=== PATIENT | female | born 1995 | race Hispanic/Latino ===

== ENCOUNTER 2019-04-19 02:46 | Inpatient (IN) | payer OTHER ==
[2019-04-19 03:32] VITALS: BMI 41.6
[2019-04-19] MEDS ORDERED: hydrALAZINE 20 MG/ML VIAL SLOW IVP PRN ×3 (04:12→20:40)
[2019-04-19] MEDS ORDERED: Promethazine HCl 25 MG/ML VIAL IM SCH (04:15)
[2019-04-19] MEDS ORDERED: Butorphanol Tartrate 1 MG/ML VIAL SLOW IVP SCH (04:15)
[2019-04-19 07:58] LABS: Hemoglobin 11.4 g/dL (12.0-16.0); Mean Corpuscular HGB CONC 34.3 g/dL (32.0-36.0); Mean Corpuscular Hemoglobin 29.6 pg (27.0-31.0); Mean Corpuscular Volume 86.3 fL (78.0-98.0); Mean Platelet Volume 9.3 fL (7.4-10.4); Platelet Count 186 thou/uL (130-400); RBC Distribution Width 13.9 % (11.5-14.5); Red Blood Cell (RBC) Count 3.86 mill/uL (4.20-5.40); White Blood Cell (WBC) Count 8.7 thou/uL (4.8-10.8)
[2019-04-19 08:38] LABS: HIV (1/2) Antibody/Antigen Non-Reactive (NonReactive); HIV 1/2 INDEX 0.18 S/CO (<1.00); Syphilis Antibody Nonreactive (Nonreactive); Syphilis Antibody Index 0.04 S/CO (<1.00 Non-Reactive)
[2019-04-19] MEDS ORDERED: Ondansetron PF 4 MG/2 ML Vial IVP PRN ×2 (08:39→15:48)
[2019-04-19] MEDS ORDERED: Lidocaine 1% (PF) 30 ML VIAL SC PRN (08:39)
[2019-04-19] MEDS ORDERED: Ibuprofen 800 MG TAB PO PRN (08:39)
[2019-04-19] MEDS ORDERED: NS / Oxytocin 40 units/1000ml 1,000 ML IV PRN (08:39)
[2019-04-19] MEDS ORDERED: Promethazine HCl 25 MG/ML VIAL IM PRN ×2 (08:39→15:48)
[2019-04-19] MEDS ORDERED: Lactated Ringer's 1,000 ML IV SCH (08:45)
--- NOTE | 2019-04-19 09:27 | PDOC.LDHP ---
Labor and Delivery H&P Chief complaint: contractions, other (Recurrent decelerations in early labor) HPI: at 40 weeks. In early labor but with recurrent decelerations. Will admit and induce for concern about distress. Baseline FHT are 145, moderate variability, early and variable decelerations but not with every contractions. Current gestational age (weeks): 40 Due date: 04/19/19 Dating criteria: first trimester ultrasound Grav: 1 Para: 0 Current complications: none Abnormal US findings: No Past Medical History: SVT on metoprolol. Generalized anxiety on sertraline. Current medications: pre-santiago vitamins Previous surgical history: none Allergies/Adverse Reactions: Allergies Allergy/AdvReac Type Severity Reaction Status Date / Time No Known Allergies Allergy Unverified 04/19/19 03:24 Social history: none - Physical Exam Vital signs reviewed and normal: yes General: NAD Heart: RRR Lungs: CTAB Abdomen: gravid Extremeties: no edema FHT: category 2, early decelerations, variable decelerations, variability present [place] contractions every: Irregular - Vaginal Exam cm dilated: 1 Effacement: 50% Station: -2 - OB Labs Blood type: O RH: positive Antibody Screen: negative HIV: negative RPR: negative HEPSAg: negative 1 hour GCT: negative GBS: negative Urine drug screen: not done Rubella: immune - Assessment L&D Assessment: term patient in labor (Early labor with irregular decelerations. WIll induce with Cook's balloon and pitocin.) - Plan Plan: admit to L&D, cervical ripening, labor augmentation if indicated, anesthesia consult for pain management
--- NOTE | 2019-04-19 09:33 | PDOC.EVN ---
Event Note - Event Note Event Note: I came to evaluate the patient. FHT category II. Generally well appearing but with occasional early or variable decelerations. CTX every 5 minutes. Cooks balloon placed wihtout difficulty. SVE 2-3/-1.
[2019-04-19 09:38] LABS: HBSAg Index 0.19 S/CO (0-0.99); Hep B Surf Ag Non-Reactive S/CO (NonReactive)
[2019-04-19] MEDS ORDERED: Butorphanol Tartrate 1 MG/ML VIAL SLOW IVP PRN (10:36)
[2019-04-19] MEDS ORDERED: ePHEDrine 50 MG/ML VIAL ONE (11:49)
[2019-04-19] MEDS ORDERED: PHENYLEPHRINE-NS 100 MCG/ML 10 ML SYRINGE ONE ×3 (11:49→15:16)
[2019-04-19] MEDS ORDERED: Dexamethasone 20 MG/5 ML VIAL ONE (11:49)
[2019-04-19] MEDS ORDERED: Ketorolac Tromethamine 30 MG/ML VIAL ONE (11:49)
[2019-04-19] MEDS ORDERED: Ondansetron PF 4 MG/2 ML Vial ONE ×2 (11:49→14:50)
[2019-04-19] MEDS ORDERED: Metoprolol Tartrate 25 MG TAB PO SCH ×2 (12:00→21:00)
[2019-04-19] MEDS ORDERED: NS w/ Oxytocin 10 units 500 ML ONE (12:06)
--- NOTE | 2019-04-19 13:55 | PDOC.EVN ---
Event Note - Event Note Event Note: Cooks balloon through the cervix on exam. SVE /-1. Balloon removed. AROM with thin meconium. FSE and IUPC placed. Having recurrent variable decelerations with every contraction. Amnioinfusion started for recurrent variables. Baseline 140, moderate variability, some accelerations, variable decelerations with contractions. Continue to reposition. Continue amnioinfusion.
[2019-04-19] MEDS ORDERED: Bicitra 30 ML UDCUP ONE (14:36)
[2019-04-19] MEDS: Lactated Ringer's 1,000 ML IV SCH (14:41)
[2019-04-19] MEDS ORDERED: Dexamethasone 4 mg/ml Vial ONE (14:50)
[2019-04-19] MEDS ORDERED: Oxytocin 10 UNITS/ML VIAL ONE ×2 (14:50→15:25)
[2019-04-19] MEDS ORDERED: MORPHINE 5 MG/10 ML PF VIAL ONE (14:50)
[2019-04-19] MEDS ORDERED: ePHEDrine/0.9% NaCl/PF SYRINGE 50 mg/10 ml ONE (14:50)
[2019-04-19] MEDS ORDERED: Fentanyl 100 MCG/2 ML VIAL ONE (14:50)
--- NOTE | 2019-04-19 14:54 | PDOC.EVN ---
Event Note - Event Note Event Note: Patient repositioned to hand and knees to try to relieve the recurrent variables and FHT became much worse in that position with deep late decels to the 80's lasting 60-90 seconds. decision made to proceed with primary C/S due to intolerance to labor, recurrent decelerations. Dr. Neymar Ruiz notified and coming to scrub with me. Discussed with patient and her family and informed consent given. Will proceed with primary C/S. Ancef hanging. Bicitra given. Anesthesia on the unit speaking with the patient. We repositioned to right lateral and applied O2 by facemask with some recovery for the baby. Currently FHT 155, moderate variability. Deceleration with the last contraction was not as deep or prolonged.
[2019-04-19] MEDS ORDERED: Lidocaine 2% PF 5 ML VIAL ONE (14:59)
[2019-04-19 15:45] LABS: Analyzer IN Cardio OR; pH (Cord, venous) 7.33 (7.32-7.43)
[2019-04-19] MEDS ORDERED: Naloxone HCl 0.4 mg/ml Vial IVP PRN ×2 (15:48)
[2019-04-19] MEDS ORDERED: diphenhydrAMINE 50 MG/ML VIAL IVP PRN (15:48)
[2019-04-19] MEDS ORDERED: Naloxone HCl 0.4 mg/ml Vial IV PRN (15:48)
[2019-04-19] MEDS ORDERED: Promethazine HCl 25 MG SUPP PR PRN (15:48)
[2019-04-19] MEDS ORDERED: Ondansetron HCl/PF 4 MG/2 ML Vial IVP PRN (15:48)
[2019-04-19] MEDS ORDERED: Meperidine HCl/PF 25 MG/ML VIAL SLOW IVP PRN (15:48)
[2019-04-19] MEDS ORDERED: HYDROmorphone 2 MG/ML VIAL SLOW IVP PRN (15:48)
[2019-04-19] MEDS ORDERED: L&D-Morphine 4 MG/ML VIAL SLOW IVP PRN (15:48)
[2019-04-19] MEDS ORDERED: Communication Order-Pharmacy FS SCH (16:00)
[2019-04-19] MEDS ORDERED: Meperidine HCl/PF 25 MG/ML VIAL ONE (17:54)
[2019-04-19] MEDS ORDERED: Acetaminophen 325 MG TAB PO PRN (20:40)
[2019-04-19] MEDS ORDERED: Bisacodyl 10 MG SUPP PR PRN (20:40)
[2019-04-19] MEDS ORDERED: Lanolin Ointment 7 GM TUBE TOP PRN (20:40)
--- NOTE | 2019-04-19 22:08 | CON ---
DATE OF CONSULTATION: HISTORY OF PRESENT ILLNESS: This is a 23-year-old female, G1, P0, at 40 weeks gestation with an EDC of 04/19/2019, who presented in labor. Dilated to 6 cm at this time. However, the patient is now having repetitively T-cells. She did have an episode of decreased variability, but strep now is reactive, but still having T-cells. Plan is to proceed with a primary low-transverse section. PAST MEDICAL HISTORY: History of anxiety disorder. PAST SURGICAL HISTORY: None. MEDICATIONS: vitamins. ALLERGIES: FAMILY HISTORY: Unremarkable. SOCIAL HISTORY: Boyfriend is present. Does not smoke, does not drink vital signs. PHYSICAL EXAMINATION: VITAL SIGNS: Stable, afebrile. HEART: Clear. LUNGS: Clear. ABDOMEN: Gravid. EXTREMITIES: No edema. LABORATORY DATA: Rubella immune. RPR negative. GC and Chlamydia negative. Hepatitis B negative. HIV negative and GBS negative. O positive blood type. ASSESSMENT: 1. Non-reassuring heart tracing. 2. Forty-week intrauterine . 3. Anxiety disorder, on sertraline 50 daily. PLAN: 1. Proceed with a primary low-transverse section. 2. Anesthesia present. 3. Discussed with the patient and mother and significant other. Job ID: [id number]
[2019-04-19] MEDS: Docusate Calcium (SURFAK) 240 MG CAP PO SCH (23:12)
--- NOTE | 2019-04-19 23:28 | OP ---
DATE OF PROCEDURE: 04/19/2019 LOCATION: [place], [place]. VALVE MACHINE OPERATOR: Dr. Gonzalez. PROCEDURE: Primary low transverse section. PREOPERATIVE DIAGNOSES: 1. Term intrauterine . 2. Non-reassuring heart tones, intolerance of labor. POSTOPERATIVE DIAGNOSES: 1. Term intrauterine , delivered. 2. Non-reassuring heart tones, intolerance of labor. ANESTHESIA: Spinal. INDICATIONS: Patient is a 23-year-old, G1, P0, at 40 weeks gestation who presented in labor. Patient subsequently developed recurrent deep variable decelerations in addition to recurrent late and variable decelerations and decision was made to perform primary low-transverse section secondary to nonreassuring heart tones. DESCRIPTION OF PROCEDURE: After risks, benefits, and alternatives were explained to the patient, she gave informed consent. Preoperative antibiotics including Ancef 2 g IV. The patient was taken to the operating room, where spinal anesthesia was initiated. She was placed in the supine position with a left tilt, prepped and draped in the usual sterile fashion. A Pfannenstiel incision was made with a scalpel, carried down at the level of fascia which was sharply nicked. The fascial cut was extended bilaterally with Franco scissors. At this point, small bleeders were cauterized with Bovie cauterization. Following this, inferior and superior edges of the fascial edges were elevated with Bushra clamps and the underlying rectus muscles were sharply and bluntly dissected free. The recti were divided digitally and retracted manually. The perineum was entered bluntly and retracted manually. At this point, the Garret O retractor was placed. A low transverse score was made with a scalpel. The uterus was entered in the midline with the scalpel. Clear fluid was seen. The hysterotomy was extended manually. The infant was noted to be vertex and easily delivered by fundal pressure. The cord was wrapped around the ankle x2. Mouth and nares were bulb suctioned. The cord was clamped and cut and grossly normal female infant was handed to the waiting nurse. Cord blood was obtained after a cord segment was obtained for cord gas analysis. The placenta was manually extracted, found to be intact with three vessel cord and discarded. The uterus was then curetted with a dry lap. Following this, the uterus was closed with 1 Monocryl suture. Following this, hemostasis was noted. The Garret O was then removed. Following removal of the Garret O, hemostasis was again noted. The abdomen was irrigated with saline and suctioned free of clots. Peritoneum was closed with a running 2-0 chromic suture. The fascia was closed with a running nonlocking 0 Vicryl suture. The subcutaneous tissue was irrigated and bleeders were cauterized with Bovie cauterization. The subcutaneous tissue was approximated with 3-0 chromic suture and the skin was then approximated with marie. Following this, pressure dressing was placed. All counts were correct. The patient tolerated procedure well, was taken to recovery room in stable condition. ESTIMATED BLOOD LOSS: 800 mL. COMPLICATIONS: None. SPECIMENS: Cord blood sent to lab for blood type. Cord segment sent for cord gas analysis. FINDINGS: Grossly normal female with Apgars of eight and nine at 1 and 5 minutes respectively. Grossly normal placenta with three vessel cord discarded. DRAINS: Garcia to gravity draining clear urine. Job ID: [id number] MTDD
[2019-04-20] MEDS: Ketorolac Tromethamine 30 MG/ML VIAL IVP SCH ×4 (00:15→16:16)
[2019-04-20] MEDS: HYDROcodone/Acetaminophen 5/325 mg Tablet PO PRN ×5 (05:11→22:52)
[2019-04-20 05:14] LABS: Hemoglobin 10.1 g/dL (12.0-16.0); Mean Corpuscular HGB CONC 34.4 g/dL (32.0-36.0); Mean Corpuscular Hemoglobin 30.3 pg (27.0-31.0); Mean Corpuscular Volume 88.1 fL (78.0-98.0); Mean Platelet Volume 8.8 fL (7.4-10.4); Platelet Count 158 thou/uL (130-400); RBC Distribution Width 13.9 % (11.5-14.5); Red Blood Cell (RBC) Count 3.33 mill/uL (4.20-5.40)
[2019-04-20] MEDS: Lactated Ringer's 1,000 ML IV SCH (06:15)
[2019-04-20] MEDS: Docusate Calcium (SURFAK) 240 MG CAP PO SCH ×2 (09:11→21:41)
[2019-04-20] MEDS: Simethicone Chewable 80 MG TAB PO PRN ×2 (09:12→18:19)
[2019-04-20] MEDS: Ibuprofen 800 MG TAB PO SCH (21:41)
[2019-04-21] MEDS: HYDROcodone/Acetaminophen 5/325 mg Tablet PO PRN ×2 (04:00→18:30)
[2019-04-21] MEDS: Ibuprofen 800 MG TAB PO SCH ×3 (06:06→21:27)
[2019-04-21] MEDS: Docusate Calcium (SURFAK) 240 MG CAP PO SCH ×2 (09:30→21:28)
[2019-04-21] MEDS: Simethicone Chewable 80 MG TAB PO PRN (21:27)
[2019-04-22] MEDS: Ibuprofen 800 MG TAB PO SCH (06:24)
[2019-04-22 07:57] VITALS: BP 135/83; TEMP 98.5
[2019-04-22] MEDS: Docusate Calcium (SURFAK) 240 MG CAP PO SCH (09:43)
--- NOTE | 2019-04-22 10:29 | OP ---
DATE OF PROCEDURE: 04/19/2019 PREOPERATIVE DIAGNOSES: 1. Term . 2. Non-reassuring heart tracing. POSTOPERATIVE DIAGNOSES: 1. Term . 2. Non-reassuring heart tracing. 3. Cord around the ankle x2. 4. Occiput posterior. PROCEDURE PERFORMED: Primary low-transverse section. ASSISTANTS: Michael Gonzalez MD and Willie Bird DO. DESCRIPTION OF PROCEDURE: This is a 23-year-old female, G1, P0, taken to operating room. Placed in the supine position. Abdomen prepped and draped sterilely. Pfannenstiel incision was made. Subcu was dissected down to the fascia. Fascia was opened without incident. The peritoneum was opened by blunt dissection. Garret O was placed. A low-transverse uterine incision was made. Fluid was noted to be clear. Delivered the baby from the OP position with cord around the ankle x2. Baby did breathe and cry vigorously upon delivery. The placenta was delivered manually intact. The uterus was closed in one layer of #1 Monocryl. The abdomen was evacuated of all clots. Peritoneum was closed with 2-0 chromic. The fascia was closed with 0 Vicryl. A subcuticular stitch was used with 2-0 chromic and the skin was closed with marie. Mother and baby did well. ESTIMATED BLOOD LOSS: 700 mL. Job ID: [id number]
[2019-04-22] MEDS: HYDROcodone/Acetaminophen 5/325 mg Tablet PO PRN (11:11)
== END 2019-04-22 11:20 | disposition home or self-care (01) | DRG 788 ==
LOC: L&D/OP 02:46 → L&D 12:21 → 3SW 20:40
PROVIDERS: ADMIT Family Medicine; ATTEND Family Medicine
PROC: 10D00Z1 Extraction of Products of Conception, Low, Open Approach (ICD-10-PCS; principal; 2019-04-19)
PROC: 0U7C7ZZ Dilation of Cervix, Via Natural or Artificial Opening (ICD-10-PCS; 2019-04-19)
PROC: 10907ZC Drainage of Amniotic Fluid, Therapeutic from Products of Conception, Via Natural or Artificial Opening (ICD-10-PCS; 2019-04-19)
DX: O76 Abnormality in fetal heart rate and rhythm complicating labor and delivery (principal); O99.344 Other mental disorders complicating childbirth; F41.1 Generalized anxiety disorder; O77.0 Labor and delivery complicated by meconium in amniotic fluid; O69.81X0 Labor and delivery complicated by cord around neck, without compression, not applicable or unspecified; O61.1 Failed instrumental induction of labor; Z3A.40 40 weeks gestation of pregnancy; Z37.0 Single live birth
CPT/HCPCS: 36415; 51702; 82805; 85027; 86780; 86850; 86900; 86901; 87340; 87389; 99285; J0595; J0690; J1100; J1885; J2001; J2175; J2274; J2405; J2550; J2590; J3010; J3490